=== PATIENT | female | born 2000 | race Hispanic/Latino ===

== ENCOUNTER 2022-08-24 18:43 | Emergency (ER) | payer OTHER ==
[~2022-08-24] VITALS: Ht 152.4 cm; Wt 68.0 kg
[2022-08-24] MEDS ORDERED: Morphine 4mg INJECTION 4 MG/ML INJ IV ONE (19:00)
[2022-08-24] MEDS ORDERED: ONDANSETRON HCL INJ 2MG/ML 2ML 2 MG/ML VIAL IV STA (19:06)
[2022-08-24 19:07] LABS: BASOPHILS % 0.3 % (0.0-1.0); EOSINOPHILS # (AUTO) 0.1 (0.0-0.4); EOSINOPHILS % 1.7 % (0.0-6.0); HEMATOCRIT 36.3 % (34.2-44.1); HEMOGLOBIN 11.6 g/dL (12.0-16.0); LYMPHOCYTES # (AUTO) 2.8 (1.0-3.2); LYMPHOCYTES % 35.2 % (18.0-39.1); MEAN CORPUSCULAR HEMOGLOBIN 26.5 pg (28-32); MEAN CORPUSCULAR VOLUME 83.1 fL (81-99); MONOCYTES # (AUTO) 0.6 (0.2-0.8); MONOCYTES % 7.9 % (4.4-11.3); NEUTROPHILS # (AUTO) 4.3 (2.1-6.9); NEUTROPHILS % 54.6 % (38.7-80.0); PLATELET COUNT 217 x10e3/uL (140-360); RED BLOOD COUNT 4.37 x10e6/uL (3.6-5.1); RED CELL DISTRIBUTION WIDTH 13.9 % (11.7-14.4)
[2022-08-24 19:24] LABS: ANION GAP 13.6 mmol/L (8-16); CALCIUM 9.6 mg/dL (8.4-10.2); CREATININE, SERUM 0.76 mg/dL (0.57-1.11); POTASSIUM 3.6 mmol/L (3.5-5.1)
== END 2022-08-24 21:18 | disposition home or self-care (01) ==
LOC: ER 18:47
DX: S06.0X1A Concussion with loss of consciousness of 30 minutes or less, initial encounter (principal); S82.892A Other fracture of left lower leg, initial encounter for closed fracture; M54.6 Pain in thoracic spine; V28.49XA Other motorcycle driver injured in noncollision transport accident in traffic accident, initial encounter; Y92.488 Other paved roadways as the place of occurrence of the external cause
CPT/HCPCS: 29515; 36415; 70450; 71260; 72125; 73600; 74177; 80048; 84702; 85025; 99284; J2270; J2405

== ENCOUNTER 2023-11-30 19:07 | Emergency (ER) | payer SELFPAY ==
[~2023-11-30] VITALS: Ht 152.4 cm; Wt 77.1 kg
[2023-11-30 20:07] VITALS: TEMP 98.9
[2023-11-30 20:50] LABS: BILIRUBIN,URINE NEGATIVE (NEGATIVE); CLARITY,URINE SL CLOUDY (CLEAR); COLOR,URINE YELLOW (YELLOW); GLUCOSE, URINE NEGATIVE (NEGATIVE); KETONES,URINE NEGATIVE (NEGATIVE); LEUKOCYTE ESTERASE ,URINE TRACE (NEGATIVE); NITRITE,URINE NEGATIVE (NEGATIVE); PH,URINE 7 (5 - 7); PROTEIN,URINE DIPSTICK NEGATIVE (NEGATIVE); URINE UROBILINOGEN 0.2 mg/dL (0.2 - 1)
[2023-11-30 20:58] VITALS: PULSE 67; RESP 17
[2023-11-30 21:01] LABS: AMORPHOUS SEDIMENT,URINE MANY (FEW); BACTERIA,URINE MODERATE /HPF; TRANSITIONAL EPI CELLS,URINE RARE; WBC,URINE (MAN) 0-5 /HPF (0-5)
[2023-11-30] MEDS: ONDANSETRON HCL 4 MG ORAL DISINTEGRATING TAB PO ONE (21:32)
[2023-11-30] MEDS: KETOROLAC TROMETHAMINE 60 MG/2 ML VIAL IM ONE (21:33)
[2023-11-30 22:20] VITALS: BP 119/70; PULSE 61; RESP 17; TEMP 98.6; O2SAT 100
== END 2023-11-30 22:25 | disposition home or self-care (01) ==
LOC: ER 19:12
DX: R10.30 Lower abdominal pain, unspecified (principal)
CPT/HCPCS: 74176; 81001; 81025; 99283; J1885; Q0162

== ENCOUNTER 2024-11-21 13:34 | Emergency (ER) | payer SELFPAY ==
[~2024-11-21] VITALS: Ht 152.4 cm; Wt 77.1 kg
[2024-11-21] MEDS: IBUPROFEN 600 MG TAB PO STA (16:16)
[2024-11-21 16:17] VITALS: PULSE 70; RESP 16; TEMP 98.6; O2SAT 98
== END 2024-11-21 16:22 | disposition home or self-care (01) ==
LOC: ER 15:52
DX: H92.02 Otalgia, left ear (principal); R51.9 Headache, unspecified
CPT/HCPCS: 99283